=== PATIENT | male | born 1990 | race African-American/Black ===

== ENCOUNTER 2019-11-20 22:50 | Emergency (ER) | payer SELFPAY ==
[~2019-11-20] VITALS: Ht 180.3 cm; Wt 61.0 kg
[2019-11-20 23:45] VITALS: BP 122/84
== END 2019-11-20 23:49 | disposition home or self-care (01) ==
LOC: ER 22:50
DX: F16.929 Hallucinogen use, unspecified with intoxication, unspecified (principal); I49.9 Cardiac arrhythmia, unspecified
CPT/HCPCS: 93005; 99283